=== PATIENT | female | born 1950 | race Caucasian/White ===

== ENCOUNTER 2018-05-05 10:15 | Emergency (ER) | payer MEDICARE ==
[2018-05-05] MEDS ORDERED: ASPIRIN 325 MG TABLET PO ONE (10:41)
[2018-05-05 10:59] LABS: BASO % 0.6 % (0-6); EOS % 1.1 % (0-6); GRAN % 76.6 % (47-80); HEMATOCRIT 44.9 % (35.0-47.0); HEMOGLOBIN 14.9 gm/dl (11.6-16.0); LYMPH % 13.9 % (16-45); MEAN CELL VOLUME 91.8 fl (81-97); MEAN CORPUSCULAR HEMOGLOBIN 30.5 pg (27-33); MEAN CORPUSCULAR HGB CONC 33.2 g/dl (32-36); MEAN PLATELET VOLUME 10.3 fl (7.4-10.4); MONO % 7.8 % (0-9); PLATELET COUNT 281 K/uL (130-400); RED BLOOD COUNT 4.89 M/uL (3.80-5.40); RED CELL DISTRIBUTION WIDTH 14.3 % (11.5-14.5); WHITE BLOOD COUNT W/O DIFF 8.1 K/uL (4.2-12.2)
--- NOTE | 2018-05-05 11:02 | Emergency Department Record ---
History of Present Illness - General Chief Complaint: Chest Pain Stated Complaint: CHEST PAIN/JAW PAIN Time Seen by Provider: 05/05/18 10:39 Source: Patient, Family Mode of Arrival: Ambulatory Limitations: No limitations - History of Present Illness Initial Comments: The patient is here due to chest discomfort off and on for one day. The discomfort is basically gone now and was worse yesterday. She describes it as jaw aching with intermittent chest pressure. The symptoms came and went yesterday but then returned today. She did take a baby ASA for it yesterday and it did resolve. There is no reported KAREN, SOB, sweating, or CP with exertion. The patient does have cardiac risk factors of heavy tobacco use and her father having an NE in his 40's. MD Complaint: Chest pain Onset/Timin -: Days(s) Pain Location: Substernal Severity scale (1-10): 6 Worsens With: Inspiration Treatments Prior to Arrival: Aspirin Treatment Prior to Arrival Comment:: 11pm aspirin - Related Data Home Medications Medication Instructions Recorded Confirmed Last Taken Aspirin [Aspir-Low] 81 mg PO DAILY 05/05/18 05/05/18 05/04/18 Etodolac [Lodine] 400 mg PO DAILY 05/05/18 05/05/18 05/04/18 Montelukast Sodium [Singulair] 10 mg PO QHS 05/05/18 05/05/18 05/04/18 Omeprazole 20 mg PO DAILY 05/05/18 05/05/18 05/04/18 Simvastatin [Zocor] 10 mg PO DAILY 05/05/18 05/05/18 05/04/18 Topiramate [Topamax] 100 mg PO DAILY 05/05/18 05/05/18 05/04/18 Ubidecarenone [Coq10] 100 mg PO DAILY 05/05/18 05/05/18 05/04/18 Allergies Allergy/AdvReac Type Severity Reaction Status Date / Time No Known Drug Allergies Allergy Verified 05/05/18 10:19 Travel Screening - Travel/Exposure Within Last 30 Days Have you traveled within the last 30 days?: No - Travel/Exposure Within Last Year Have you traveled outside the [place] in the last year?: No - Additonal Travel Details Have you been exposed to anyone with a communicable illness?: No - Travel Symptoms Symptom Screening: None Review of Systems Constitutional: Denies: Chills, Fever Eyes: Denies: Eye discharge ENT: Denies: Congestion Respiratory: Denies: Cough, Dyspnea Cardiovascular: Reports: Chest pain. Denies: Arrhythmia Endocrine: Denies: Fatigue Gastrointestinal: Denies: Abdominal pain Genitourinary: Denies: Dysuria Musculoskeletal: Denies: Arthralgia Past Medical History - SOCIAL HISTORY Smoking Status: Current every day smoker Alcohol Use: Rare Drug Use: None - RESPIRATORY Hx Respiratory Disorders: No Comment:: allergies - CARDIOVASCULAR Hx Cardio Disorders: No Comment:: cholesterol - NEURO Hx Neuro Disorders: No - GI Hx GI Disorders: Yes Hx of Polyps: Yes - Hx Genitourinary Disorders: Yes Hx Bladder Problem: Yes (frequency) - ENDOCRINE Hx Endocrine Disorders: No - MUSCULOSKELETAL Hx Musculoskeletal Disorders: Yes Hx Arthritis: Yes - PSYCH Hx Psych Problems: No - HEMATOLOGY/ONCOLOGY Hx Hematology/Oncology Disorders: Yes Hx Cancer: Yes (breast) Hx Chemotherapy: No Hx Radiation Therapy: Yes (2002) Family Medical History Any Significant Family History?: Yes Hx Cancer: Brother/Sister *Cancer Comment: prostate Hx Diabetes: Grandparents Hx Heart Disease: Father *Heart Comment: [place] Physical Exam - General General Appearance: Alert, Oriented x3, Cooperative, No acute distress - Head Head exam: Atraumatic, Normocephalic, Normal inspection - Eye Eye exam: Normal appearance, PERRL - ENT Throat exam: Normal inspection. negative: Tonsillar erythema, Tonsillar exudate - Neck Neck exam: Normal inspection, Full ROM. negative: Lymphadenopathy, Tenderness - Respiratory Respiratory exam: Normal lung sounds bilaterally. negative: Respiratory distress - Cardiovascular Cardiovascular Exam: Regular rate, Normal rhythm, Normal heart sounds - GI/Abdominal GI/Abdominal exam: Soft, Normal bowel sounds. negative: Tenderness - Extremities Extremities exam: Normal inspection, Full ROM, Normal capillary refill. negative: Tenderness - Neurological Neurological exam: Alert, Normal gait. negative: Abnormal gait, Motor sensory deficit - Skin Skin exam: negative: Rash Course Vital Signs 05/05/18 10:22 Temperature 97.9 F Pulse Rate 65 Respiratory 14 Rate Blood Pressure 130/85 Pulse Ox 97 - Reevaluation(s) Reevaluation #1: The patient is doing very well at this time. She denies any pain or discomfort. I did discuss the results with the patient and the need for admission and she did agree. The patient would like to be transferred to [facility] so I did discuss the case with Dr. Benito and he does accept the patient for transfer. 05/05/18 11:52 Medical Decision Making - Data Complexity MDM Data: Labs Ordered and/or Reviewed, X-Ray Ordered and/or Reviewed, EKG Ordered and/or Reviewed - Lab Data Result diagrams: 05/05/18 10:20 05/05/18 10:20 - EKG Data -: EKG Interpreted by Me EKG: No Acute Changes, Normal EKG - Radiology Data Radiology results: Report reviewed (CXR: COPD, O/W neg.) Disposition Disposition: Transfer Clinical Impression: Chest pain Qualifiers: Chest pain type: unspecified Qualified Code(s): R07.9 - Chest pain, unspecified Disposition: Acute Care Hospital Transfer Transfer To: [facility] Reason For Transfer: Cardiology Accepting Physician: Thong Time Discussed w/Accepting Physician: 11:54 Condition: (2) Stable Forms: Patient Portal Access Time of Disposition: 11:54 Quality - Quality Measures Quality Measures: N/A - Blood Pressure Screening View Details: Yes Does Patient Have Any of the Following: No Blood Pressure Classification: Pre-Hypertensive BP Reading Systolic Measurement: 130 Diastolic Measurement: 85 Screening for High Blood Pressure: < Pre-Hypertensive BP, F/U Documented > [ G8950] Pre-Hypertensive Follow-up Interventions: Referral to alternative/primary care provider.
[2018-05-05 11:12] LABS: BLOOD UREA NITROGEN 17 mg/dL (8-23); INR 0.9; PARTIAL THROMBOPLASTIN TIME 31.8 SECONDS (24.5-39.1)
[2018-05-05 11:13] LABS: CREATININE 0.8 mg/dL (0.5-0.9); EST GLOMERULAR FILTRATION RATE > 60 mL/min
[2018-05-05 11:15] LABS: GLUCOSE,RANDOM 106 mg/dL (74-109)
[2018-05-05 11:18] LABS: CREATINE PHOSPHOKINASE 665 U/L (26-192)
[2018-05-05 11:20] LABS: CKMB 3.2 ng/mL (<3.77)
--- NOTE | 2018-05-06 08:46 | RADIOLOGY REPORT ---
EXAM: CHEST 2 VIEWS HISTORY: CHEST PAIN. TECHNIQUE: Frontal and lateral views of the chest. COMPARISON: None. FINDINGS: The heart size is normal. Atheromatous change, thoracic aorta. Osteopenia. Underlying emphysema. Elevation of the right hemidiaphragm. No pneumothorax. Lungs are clear. IMPRESSION: EMPHYSEMA. LUNGS ARE CLEAR. JOB NUMBER: [id number] MTDD
--- NOTE | 2018-05-07 11:02 | Emergency Department Record ---
History of Present Illness - General Chief Complaint: Chest Pain Stated Complaint: CHEST PAIN/JAW PAIN Time Seen by Provider: 05/05/18 10:39 Source: Patient, Family Mode of Arrival: Ambulatory Limitations: No limitations - History of Present Illness Onset/Timin -: Days(s) Pain Location: Substernal Severity scale (1-10): 6 Worsens With: Inspiration Treatments Prior to Arrival: Aspirin Treatment Prior to Arrival Comment:: 11pm aspirin - Related Data Home Medications Medication Instructions Recorded Confirmed Last Taken Aspirin [Aspir-Low] 81 mg PO DAILY 05/05/18 05/05/18 05/04/18 Etodolac [Lodine] 400 mg PO DAILY 05/05/18 05/05/18 05/04/18 Montelukast Sodium [Singulair] 10 mg PO QHS 05/05/18 05/05/18 05/04/18 Omeprazole 20 mg PO DAILY 05/05/18 05/05/18 05/04/18 Simvastatin [Zocor] 10 mg PO DAILY 05/05/18 05/05/18 05/04/18 Topiramate [Topamax] 100 mg PO DAILY 05/05/18 05/05/18 05/04/18 Ubidecarenone [Coq10] 100 mg PO DAILY 05/05/18 05/05/18 05/04/18 Allergies Allergy/AdvReac Type Severity Reaction Status Date / Time No Known Drug Allergies Allergy Verified 05/05/18 10:19 Travel Screening - Travel/Exposure Within Last 30 Days Have you traveled within the last 30 days?: No - Travel/Exposure Within Last Year Have you traveled outside the [place] in the last year?: No - Additonal Travel Details Have you been exposed to anyone with a communicable illness?: No - Travel Symptoms Symptom Screening: None Review of Systems Constitutional: Denies: Chills, Fever Eyes: Denies: Eye discharge ENT: Denies: Congestion Respiratory: Denies: Cough, Dyspnea Cardiovascular: Reports: Chest pain. Denies: Arrhythmia Endocrine: Denies: Fatigue Gastrointestinal: Denies: Abdominal pain Genitourinary: Denies: Dysuria Musculoskeletal: Denies: Arthralgia Neurological: Denies: Confusion Psychiatric: Denies: Anxiety Past Medical History - SOCIAL HISTORY Smoking Status: Current every day smoker Alcohol Use: Rare Drug Use: None - RESPIRATORY Hx Respiratory Disorders: No Comment:: allergies - CARDIOVASCULAR Hx Cardio Disorders: No Comment:: cholesterol - NEURO Hx Neuro Disorders: No - GI Hx GI Disorders: Yes Hx of Polyps: Yes - Hx Genitourinary Disorders: Yes Hx Bladder Problem: Yes (frequency) - ENDOCRINE Hx Endocrine Disorders: No - MUSCULOSKELETAL Hx Musculoskeletal Disorders: Yes Hx Arthritis: Yes - PSYCH Hx Psych Problems: No - HEMATOLOGY/ONCOLOGY Hx Hematology/Oncology Disorders: Yes Hx Cancer: Yes (breast) Hx Chemotherapy: No Hx Radiation Therapy: Yes (2002) Family Medical History Any Significant Family History?: Yes Hx Cancer: Brother/Sister *Cancer Comment: prostate Hx Diabetes: Grandparents Hx Heart Disease: Father *Heart Comment: [place] Physical Exam - General Limitations: No limitations Course Vital Signs 05/05/18 05/05/18 05/05/18 10:22 11:37 12:08 Temperature 97.9 F Pulse Rate 65 Pulse Rate [ 67 73 Pulse Ox Probe] Respiratory 14 16 18 Rate Blood Pressure 130/85 Blood Pressure 118/73 115/79 [Right Arm] Pulse Ox 97 98 96 Medical Decision Making - Lab Data Result diagrams: 05/05/18 10:20 05/05/18 10:20 Lab Results 05/05/18 05/05/18 05/05/18 Range/Units 10:20 10:20 10:20 WBC 8.1 (4.2-12.2) K/uL RBC 4.89 (3.80-5.40) M/uL Hgb 14.9 (11.6-16.0) gm/dl Hct 44.9 (35.0-47.0) % MCV 91.8 (81-97) fl MCH 30.5 (27-33) pg MCHC 33.2 (32-36) g/dl RDW 14.3 (11.5-14.5) % Plt Count 281 (130-400) K/uL MPV 10.3 (7.4-10.4) fl Gran % 76.6 (47-80) % Lymphocytes % 13.9 L (16-45) % Monocytes % 7.8 (0-9) % Eosinophils % 1.1 (0-6) % Basophils % 0.6 (0-6) % PT 10.0 (9.5-12.1) SECONDS INR 0.9 APTT 31.8 (24.5-39.1) SECONDS Sodium 140 (136-145) mmol/L Potassium 3.7 (3.4-4.5) mmol/L Chloride 104 (98-107) mmol/L Carbon Dioxide 23.0 (22-29) mmol/L Anion Gap 13.0 (7-16) BUN 17 (8-23) mg/dL Creatinine 0.8 (0.5-0.9) mg/dL Estimated GFR > 60 mL/min Random Glucose 106 (74-109) mg/dL Calcium 9.1 (8.8-10.2) mg/dL Creatine Kinase 665 H (26-192) U/L CK-MB (CK-2) 3.2 (<3.77) ng/mL Troponin T < 0.010 (0-0.010) ng/mL Disposition Clinical Impression: Chest pain Qualifiers: Chest pain type: unspecified Qualified Code(s): R07.9 - Chest pain, unspecified Disposition: Acute Care Hospital Transfer Condition: (2) Stable Forms: Patient Portal Access Quality - Quality Measures Quality Measures: N/A - Blood Pressure Screening View Details: Yes Does Patient Have Any of the Following: No Blood Pressure Classification: Pre-Hypertensive BP Reading Systolic Measurement: 130 Diastolic Measurement: 85 Screening for High Blood Pressure: < Pre-Hypertensive BP, F/U Documented > [ G8950] Pre-Hypertensive Follow-up Interventions: Referral to alternative/primary care provider.
== END 2018-05-05 13:05 | disposition short-term general hospital (02) ==
LOC: ER 10:15
DX: R07.89 Other chest pain (principal); R68.84 Jaw pain; M54.2 Cervicalgia; J43.9 Emphysema, unspecified; F17.210 Nicotine dependence, cigarettes, uncomplicated; Z85.3 Personal history of malignant neoplasm of breast
CPT/HCPCS: 71046; 80048; 82550; 82553; 84484; 85025; 85610; 85730; 93005; 93010; 99285